=== PATIENT | male | born 1985 | race Asian ===

== ENCOUNTER 2024-10-04 19:18 | Emergency (ER) | payer OTHER, SELFPAY ==
[2024-10-04 19:19] VITALS: BP 141/100; PULSE 106; RESP 18; TEMP 36.1; O2SAT 99; BMI 25.8
--- NOTE | 2024-10-04 21:55 | EX.ED.GUMALE ---
HPI History of Present Illness Chief Complaint: Male Pain/Injury Informant: patient Narrative Narrative: 39-year-old male presenting to the emergency room with a chief complaint with penile discomfort and redness. Symptoms have been present for about 1 week. He is uncircumcised. He denies any dysuria drainage or exudate. No difficulty with foreskin retraction. He states he has not been sexually active for a very long time. He has no history of STD. He states he has some small bumps along the base of the glans but they are unchanged and have been present for years. He states he was using a body wash and he changed to a nonscented low allergenic wash when his symptoms are. PFSH PFSH Medical History Insomnia Major depressive disorder in partial remission Alcohol abuse Home Medications ?Medication ?Instructions ?Recorded ?Last Taken ?Type clotrimazole 1 % topical cream 1 applic topical BID 2 weeks #30 10/04/24 Unknown Rx grams Allergy/AdvReac Type Severity Reaction Status Date / Time squid Allergy Mild Hives Verified 10/04/24 19:19 Family History Father Alcoholism High cholesterol Grandmother Diabetes Mother Hypertension High cholesterol Surgical History No history of previous surgery Social History Smoking Status: Never smoker alcohol intake: former substance use type: does not use what type of physical activity do you participate in: yoga frequency: daily ROS ROS ED Constitutional Constitutional ED: Denies chills or weight loss Eyes Eyes: Denies change in vision or diplopia ENT ENT ED: Denies ear pain, rhinorrhea or sore throat Cardiovascular Cardiovascular: Denies chest pain, orthopnea, palpitations or racing heartbeat Respiratory/Chest Respiratory/Chest: Denies cough, dyspnea or orthopnea Gastrointestinal Gastrointestinal: Denies abdominal pain, diarrhea, nausea or vomiting Genitourinary Genitourinary ED: Reports other Details: See history of present illness ; Denies dysuria, hematuria or urinary frequency Musculoskeletal Musculoskeletal: Denies arthralgias or myalgias Integumentary Denies abscess or rash Neurologic Neurologic: Denies headache(s) or weakness Psychiatric Psychiatric: Denies anxiety, depression, suicidal ideation or suicidal thoughts Endocrine Endocrinology: Denies polydipsia, polyphagia or polyuria Allergic/Immunologic Allergic/Immunologic ED: Denies mouth swelling, tongue swelling or urticaria EXAM Physical Exam Const Vital Signs: 10/04/24 19:19 Temperature 96.9 F L Temperature Source Temporal Pulse Rate 106 H Respiratory Rate 18 Blood Pressure 141/100 H Blood Pressure Mean 113 Pulse Ox 99 Oxygen Delivery Method Room Air Positive well nourished and well developed General Appearance ED: well developed HEENT Reports normocephalic, head/scalp atraumatic and moist mucous membranes Eyes PERRL and EOMs intact bilaterally Neck no lymphadenopathy, supple and no JVD Resp normal respiratory effort and clear to auscultation bilaterally Cardio regular rate, regular rhythm and no murmurs GI normal to inspection, nondistended, normoactive bowel sounds and non-tender Palpation: soft Narrative: exam was performed in the presence of male nurse (Brandon). There is some erythema of the glans of the penis. The foreskin is easily retracted and pulled back. I do not appreciate any significant exudate. The urethral meatus appears normal. Back/Spine no CVA tenderness and normal ROM Extremity normal to inspection General Extremety ED: Negative for edema General Extremity: Negative for edema Neuro oriented x3 and CN's II-XII intact bilaterally Sensorium / Orientation: alert Motor Exam: strength 5/5 throughout Psych mental status grossly normal Mood & Affect: Negative for depressed or tearful Skin no rashes or lesions noted and no wounds MDM MDM MDM Narrative Medical decision making narrative: Differential diagnosis includes paraphimosis phimosis STD urethritis balanitis Clinically this appears to be more of a balanitis. I will write him for clotrimazole and he will follow-up with urology if not improving return if worsening patient's comfortable with this plan History & Record Review Discussion w/independent historian: Patient Discharge Plan Triage Chief Complaint: Male Pain/Injury ED Provider: Leroy Alejo Dx/Rx/DC Orders Clinical Impression: Balanitis Instructions: ED Balanitis Prescriptions: New clotrimazole 1 % cream 1 applic topical BID 14 Days Qty: 30 0RF Primary Care Provider: Care Physician,No Primary Referrals: Ludwig Castillo MD [Med Staff - Active Staff] - 1 Week if not improving Care Physician,No Primary [Primary Care Provider] - Print Language: Belarusian Disposition Disposition: Home, Self Care
== END 2024-10-04 22:25 | disposition home or self-care (01) ==
PROVIDERS: Emergency Provider Emergency Medicine; Visit Provider Emergency Medicine
DX: N48.1 Balanitis (principal)
CPT/HCPCS: 99282

== ENCOUNTER 2024-10-15 12:31 | Emergency (ER) | payer OTHER, SELFPAY ==
[2024-10-15 12:31] VITALS: BP 131/99; PULSE 91; RESP 16; TEMP 36.6; O2SAT 100; BMI 25.3
--- NOTE | 2024-10-15 13:39 | EX.ED.GUMALE ---
HPI History of Present Illness Chief Complaint: Complaint Narrative Narrative: 39-year-old male who denies significant past medical history, presents for recheck of his genital area. He was seen in the emergency department on the , and prescribed clotrimazole cream. He was diagnosed with balanitis and has been using the cream, but states he has been unable to follow-up with urology. He thinks that while it has not gotten worse, and has not gotten that much better. It does not itch. He denies any difficulty urinating. He is circumcised. He feels like he might need to be changed to a different cream or higher strength. No fevers or chills, no other exacerbating or alleviating factors. PFSH PFSH Medical History Insomnia Major depressive disorder in partial remission Alcohol abuse Home Medications ?Medication ?Instructions ?Recorded ?Last Taken ?Type clotrimazole 1 % topical cream 1 applic topical BID 2 weeks #30 10/04/24 Unknown Rx grams fluconazole 100 mg tablet 100 mg PO DAILY 10 days #10 tabs 10/15/24 Unknown Rx (Diflucan) nystatin 100,000 unit/gram topical 1 applic topical TID #30 grams 10/15/24 Unknown Rx cream Allergy/AdvReac Type Severity Reaction Status Date / Time squid Allergy Mild Hives Verified 10/15/24 12:34 Family History Father Alcoholism High cholesterol Grandmother Diabetes Mother Hypertension High cholesterol Surgical History No history of previous surgery Social History Smoking Status: Never smoker alcohol intake: former substance use type: does not use what type of physical activity do you participate in: yoga frequency: daily ROS ROS ED ROS Narrative Review of systems positive for redness and irritation to head of penis. States he sees small red dots as well. No dysuria or difficulty urinating. No testicular pain or tenderness. No spreading of redness to groin. No fevers or chills, no nausea or vomiting. EXAM Physical Exam Narrative Exam Narrative: Afebrile. Vital signs noted. Nontoxic-appearing. Cardiovascular examination reveals a regular rate and rhythm. Lungs are clear to auscultation bilaterally. Abdomen is soft and nontender with positive bowel sounds. Chaperoned genital examination reveals minimal erythema and redness to the glans penis, but no purulent discharge, no rash. No testicular tenderness. No erythema to shaft of penis. No noted hernia on examination, no crepitance. Const Vital Signs: 10/15/24 12:31 10/15/24 13:58 Temperature 97.9 F 98 F Temperature Source Temporal Pulse Rate 91 70 Respiratory Rate 16 18 Blood Pressure 131/99 H 118/62 Blood Pressure Mean 109 80 Pulse Ox 100 99 Oxygen Delivery Method Room Air MDM MDM MDM Narrative Medical decision making narrative: Differential diagnosis would include but not limited to Everton's gangrene versus balanitis versus cellulitis versus mild skin irritation. I do not feel that any laboratory work or urinalysis is indicated. I reviewed the patient's prior records. Additionally I spoke with Dr. Castillo with urology. He suggested changing him to nystatin and oral Diflucan for 10 days. I discussed this with the patient versus just using Aquaphor and through shared decision making he would like to try this other combination of medication. He will follow-up with urology. Return instructions to the emergency department were reviewed. Disposition is discharged home in stable condition. History & Record Review Discussion w/independent historian: Patient Management Discussion w/another healthcare provider: Client Relations Associate (Dr. Castillo) Discharge Plan Triage Chief Complaint: Complaint ED Provider: Rah oCchran Dx/Rx/DC Orders Clinical Impression: Balanitis, Penile abnormality Instructions: ED Balanitis Prescriptions: New fluconazole [Diflucan] 100 mg tablet 100 mg PO DAILY 10 Days Qty: 10 0RF nystatin 100,000 unit/gram cream 1 applic topical TID Qty: 30 0RF No Action clotrimazole 1 % cream 1 applic topical BID 14 Days Qty: 30 0RF Primary Care Provider: Care Physician,No Primary Referrals: Ludwig Castillo MD [Med Staff - Active Staff] - 10-14 Days if not better Care Physician,No Primary [Primary Care Provider] - Activity Restrictions/Additional Instructions: Stop use of clotrimazole cream, and instead use nystatin cream that was prescribed 3 times a day for 10 days. Also take the oral Diflucan once a day for 10 days. Follow-up with urology in 10 to 14 days. Return to the emergency department with new or worsening symptoms. Print Language: Khmer Disposition Disposition: Home, Self Care Discharge Date/Time: 10/15/24 14:00
[2024-10-15 13:58] VITALS: BP 118/62; PULSE 70; RESP 18; TEMP 36.6; O2SAT 99
== END 2024-10-15 14:00 | disposition home or self-care (01) ==
PROVIDERS: Emergency Provider Emergency Medicine; Visit Provider Emergency Medicine
DX: N48.1 Balanitis (principal)
CPT/HCPCS: 99282

== ENCOUNTER 2025-07-08 10:05 | Emergency (ER) | payer OTHER, SELFPAY ==
[2025-07-08 10:06] VITALS: BP 126/74; PULSE 103; RESP 16; TEMP 37.1; O2SAT 98; BMI 24.0
--- NOTE | 2025-07-08 10:32 | EX.ED.VIS.UR ---
HPI HPI - URI History of Present Illness Chief Complaint: Sore Throat Informant: patient Onset/Context/Timing Onset: Days Context: Gradual Onset Timing: Continuous Current Severity: Mild Maximum Severity: Mild Associated Symptoms Associated Symptoms: Positive for - (Mild sore throat.) Narrative Narrative: Healthy 40-year-old male complaining of a sore throat last 2 days or so. Able to swallow. No vomiting or diarrhea. No fever. Also the patient's had an itchy rash on his penile shaft for last 2 to 3 days. No history of STD. No dysuria or discharge. Currently not sexually active. Prior similar symptoms: Yes Recent Illness/Hospitalization: No ROS ROS ED ROS Narrative Mild sore throat. Constitutional Constitutional ED: Denies chills or fever(s) Eyes Eyes: Denies blurry vision ENT ENT ED: Reports sore throat; Denies ear pain or rhinorrhea Cardiovascular Cardiovascular: Denies chest pain Respiratory/Chest Respiratory/Chest: Denies cough Gastrointestinal Gastrointestinal: Denies abdominal pain, constipation, diarrhea, nausea or vomiting Genitourinary Genitourinary ED: Denies dysuria or hematuria Musculoskeletal Musculoskeletal: Denies arthralgias Integumentary Denies abscess Neurologic Neurologic: Denies headache(s) Psychiatric Psychiatric: Denies anxiety Endocrine Endocrinology: Denies cold intolerance Hematologic/Lymphatic Hematologic/Lymphatic: Denies easy bleeding, easy bruising or lymphadenopathy Allergic/Immunologic Allergic/Immunologic ED: Denies mouth swelling, tongue swelling or urticaria PFSH PFSH Medical History Insomnia Major depressive disorder in partial remission Alcohol abuse Home Medications ?Medication ?Instructions ?Recorded ?Last Taken ?Type clotrimazole 1 % topical cream 1 applic topical BID 2 weeks #30 10/04/24 Unknown Rx grams fluconazole 100 mg tablet 100 mg PO DAILY 10 days #10 tabs 10/15/24 Unknown Rx (Diflucan) nystatin 100,000 unit/gram topical 1 applic topical TID #30 grams 10/15/24 Unknown Rx cream Allergy/AdvReac Type Severity Reaction Status Date / Time squid Allergy Mild Hives Verified 07/08/25 10:10 Family History Father Alcoholism High cholesterol Grandmother Diabetes Mother Hypertension High cholesterol Surgical History No history of previous surgery Social History Smoking Status: Never smoker alcohol intake: former substance use type: does not use what type of physical activity do you participate in: yoga frequency: daily EXAM Physical Exam Narrative Exam Narrative: 40-year-old male sitting upright in bed vital signs stable afebrile. No acute distress. H EENT exam pupils round reactive light. Moist mutes membranes. Posterior pharynx minimal erythema. No exudate. No peritonsillar abscess. No difficulty swallowing or breathing. No stridor or drooling. TMs minimally dull bilaterally. But is having no ear pain. Neck nontender no lymphadenopathy no meningismus. Trachea midline. Nontender. Lungs clear to auscultation bilaterally. Heart regular rhythm rate about 100 no murmur. Chest wall ribs nontender. Abdomen soft nontender. External exam. Uncircumcised male is up rash on the right side of his penile shaft consistent with a contact dermatitis. There is no pustules. There is no vesicles. There is no ulcerations. There is no inguinal lymphadenopathy. Scrotum and testicles are unremarkable. Moving all 4 extremities. Nontender no edema normal strength. Back nontender. Neurologically he is awake alert. Answering questions following commands. Const Vital Signs: 07/08/25 10:06 07/08/25 10:42 Temperature 98.7 F 98.7 F Temperature Source Oral Pulse Rate 103 H 97 Respiratory Rate 16 16 Blood Pressure 126/74 H 126/74 H Blood Pressure Mean 91 91 Pulse Ox 98 98 Oxygen Delivery Method Room Air MDM MDM MDM Narrative Medical decision making narrative: 40-year-old male with a mild sore throat mostly with viral pharyngitis. Will send a rapid strep I will call him if the results are positive. He does not need antibiotic at this time. He has no lymphadenopathy and no exudate. Also the patient is a contact dermatitis is to be treated with Benadryl. History & Record Review Discussion w/independent historian: Patient Additional record(s) reviewed:: No prior records Lab Data Attestation: I reviewed the patient's lab results. Lab results narrative: Rapid strep negative. Discharge Plan Triage Chief Complaint: Sore Throat Other Complaint: Male Pain/Injury ED Provider: Baljinder Reyna Dx/Rx/DC Orders Clinical Impression: Acute viral pharyngitis, Contact dermatitis Instructions: ED Contact Dermatitis, ED Pharyngitis, Viral Prescriptions: No Action fluconazole [Diflucan] 100 mg tablet 100 mg PO DAILY 10 Days Qty: 10 0RF nystatin 100,000 unit/gram cream 1 applic topical TID Qty: 30 0RF clotrimazole 1 % cream 1 applic topical BID 14 Days Qty: 30 0RF Primary Care Provider: Dea Boswell Referrals: Dea Boswell MD [Primary Care Provider, Internal Medicine] - 1 Week if not improving Activity Restrictions/Additional Instructions: Plenty of fluids and rest. Warm salt water gargling. Chloraseptic spray. Throat lozenges. Motrin and Tylenol for any pain and bodyaches. We will send a rapid strep if it is positive I will call you clinically this looks like a viral pharyngitis a virus and does not need antibiotics. The rash is consistent with a contact dermatitis or allergic reaction. Use Benadryl pills and/or Benadryl cream. This should progressively get better. It does not look like a bacterial infection. Print Language: Korean Disposition Disposition: Home, Self Care Discharge Date/Time: 07/08/25 10:42
[2025-07-08 10:42] VITALS: BP 126/74; PULSE 97; RESP 16; TEMP 37.1; O2SAT 98
== END 2025-07-08 10:42 | disposition home or self-care (01) ==
PROVIDERS: Emergency Provider Emergency Medicine; PCP Internal Medicine; Visit Provider Emergency Medicine
DX: J02.9 Acute pharyngitis, unspecified (principal); L25.9 Unspecified contact dermatitis, unspecified cause
CPT/HCPCS: 87651; 99283